=== PATIENT | female | born 1985 | race Caucasian/White ===

== ENCOUNTER 2017-07-14 11:10 | Emergency (ER) | payer MEDICAID | END 2017-07-14 11:55 | disposition home or self-care (01) | LOC: D.ER 11:10 | DX: H20.9 Unspecified iridocyclitis (principal); S05.01XA Injury of conjunctiva and corneal abrasion without foreign body, right eye, initial encounter; X58.XXXA Exposure to other specified factors, initial encounter; Y93.89 Activity, other specified; Y92.029 Unspecified place in mobile home as the place of occurrence of the external cause; H10.31 Unspecified acute conjunctivitis, right eye ==

== ENCOUNTER 2019-03-01 11:19 | Emergency (ER) | payer MEDICAID ==
[2019-03-01 11:23] VITALS: BP 150/90; Wt 80.9 kg
== END 2019-03-01 13:00 | disposition left against medical advice (07) ==
LOC: D.ER 11:19
DX: H57.12 Ocular pain, left eye (principal)

== ENCOUNTER 2019-04-15 20:16 | Emergency (ER) | payer MEDICAID ==
[~2019-04-15] VITALS: Ht 160 cm; Wt 81.8 kg
[2019-04-15 20:18] VITALS: Ht 160 cm; Wt 81.8 kg
[2019-04-15] MEDS ORDERED: VOLTAREN75 MG PO (21:43)
[2019-04-15] MEDS ORDERED: BACTRIM 400-801 TAB PO (21:43)
[2019-04-15 22:45] VITALS: BP 110/74
== END 2019-04-15 22:25 | disposition home or self-care (01) ==
LOC: D.ER 20:16
DX: S61.210A Laceration without foreign body of right index finger without damage to nail, initial encounter (principal); W25.XXXA Contact with sharp glass, initial encounter; Y93.89 Activity, other specified; Y92.89 Other specified places as the place of occurrence of the external cause

== ENCOUNTER 2019-05-16 21:14 | Emergency (ER) | payer MEDICAID ==
[~2019-05-16] VITALS: Ht 160 cm; Wt 80.7 kg
[~2019-05-16 21:14] MED LIST: BACTRIM 400-801 TAB PO; VOLTAREN75 MG PO
[2019-05-16 21:17] VITALS: Ht 160 cm; Wt 80.7 kg
[2019-05-16] MEDS ORDERED: ERYTHROMYCIN OPT1 GM RIGHT EYE (21:56)
[2019-05-16 22:09] VITALS: BP 137/85
== END 2019-05-16 22:09 | disposition home or self-care (01) ==
LOC: D.ER 21:14
DX: S05.01XA Injury of conjunctiva and corneal abrasion without foreign body, right eye, initial encounter (principal); W22.8XXA Striking against or struck by other objects, initial encounter; Y93.89 Activity, other specified; Y92.89 Other specified places as the place of occurrence of the external cause

== ENCOUNTER 2019-09-06 09:17 | Emergency (ER) | payer MEDICAID ==
[~2019-09-06] VITALS: Ht 160 cm; Wt 81.8 kg
[~2019-09-06 09:17] MED LIST changes: +ERYTHROMYCIN OPT1 GM RIGHT EYE
[2019-09-06 09:22] VITALS: Ht 160 cm; Wt 81.8 kg
[2019-09-06] MEDS ORDERED: ACULAR 0.5 % OPH5 ML LEFT EYE (10:36)
[2019-09-06] MEDS ORDERED: OCUFLOX 0.3 % OP5 ML LEFT EYE (10:36)
[2019-09-06 10:45] VITALS: BP 136/78
== END 2019-09-06 10:45 | disposition home or self-care (01) ==
LOC: D.ER 09:17
DX: S05.02XA Injury of conjunctiva and corneal abrasion without foreign body, left eye, initial encounter (principal); X58.XXXA Exposure to other specified factors, initial encounter

== ENCOUNTER 2019-12-02 22:51 | Emergency (ER) | payer OTHER ==
[~2019-12-02] VITALS: Ht 160 cm; Wt 81.8 kg
[~2019-12-02 22:51] MED LIST changes: +ACULAR 0.5 % OPH5 ML LEFT EYE; +OCUFLOX 0.3 % OP5 ML LEFT EYE
[2019-12-02 22:56] VITALS: BP 166/106; Ht 160 cm; Wt 81.8 kg
[2019-12-02] MEDS ORDERED: CLINDAMYCIN HC300 MG PO (23:06)
[2019-12-02] MEDS ORDERED: KEFLEX500 MG PO (23:06)
== END 2019-12-02 23:33 | disposition home or self-care (01) ==
LOC: D.ER 22:51
DX: L03.116 Cellulitis of left lower limb (principal); L02.416 Cutaneous abscess of left lower limb

== ENCOUNTER 2020-11-14 16:26 | Emergency (ER) | payer OTHER ==
[2020-10-23 04:40] VITALS: Ht 160 cm; Wt 70.5 kg
[~2020-11-14] VITALS: Ht 160 cm; Wt 70.5 kg
[~2020-11-14 16:26] MED LIST changes: +CLINDAMYCIN HC300 MG PO; +KEFLEX500 MG PO; +VIGAMOX3 ML EACH EYE; +VIGAMOX3 ML RIGHT EYE
[2020-11-14 16:32] VITALS: BP 146/91
[2020-11-14] MEDS ORDERED: TORADOL10 MG PO (17:20)
== END 2020-11-14 17:42 | disposition home or self-care (01) ==
LOC: D.ER 16:26
DX: M79.645 Pain in left finger(s) (principal); S60.052A Contusion of left little finger without damage to nail, initial encounter; X58.XXXA Exposure to other specified factors, initial encounter